=== PATIENT | female | born 1975 | race Caucasian/White ===

== ENCOUNTER 2024-01-04 03:43 | Emergency (ER) | payer OTHER, SELFPAY ==
--- NOTE | ~2024-01-04 | CT_ITS ---
CT scan of the Neck Technique: 2.5 mm axial scans were obtained through the neck after intravenous administration of 75 c c Omnipaque 350. Coronal and sagittal reconstructions of the neck were obtained. Dose reduction techn ique was used on this scan by utilizing automated exposure control and iterative reconstruction techn ique. The dose-length product (DLP) was 603.95 mGy-cm. Clinical History: Left ear infection extending to neck and jaw Findings: Suggestion of mild soft tissue thickening at the left external auditory canal with minimal infiltrati ve changes in the left prevascular region. There is shotty, minimally prominent left level 2 cervical lymph nodes. Parapharyngeal fat preserved bilaterally. Parapharyngeal spaces appear normal bilateral ly. The parotid and submandibular glands appear normal. The pharyngeal mucosal spaces appear normal. No soft tissue masses are seen in the neck. The thyroid gland appears normal. Images of the lung apices reveal no abnormalities. Impression: Possible left otitis externa. Correlate with physical exam. Shotty, presumably reactive minimally prominent level 2 cervical lymph nodes in the left side of the neck. Reviewed, dictated and finalized at [facility]. Impression: Possible left otitis externa. Correlate with physical exam. Shotty, presumably reactive minimally prominent level 2 cervical lymph nodes in the left side of the neck.
[2024-01-04 03:54] VITALS: BP 154/101; PULSE 90; RESP 14; TEMP 36.6; O2SAT 100
[2024-01-04 05:19] VITALS: BP 145/83; PULSE 93; RESP 13; O2SAT 93
[2024-01-04] MEDS: CIPROFLOXACIN 400 MG/D5W 200ML 200 ML 200 MG IVPB (05:21)
[2024-01-04] MEDS: ACETAMINOPHEN 500 MG TABLET 1000 MG PO (05:21)
[2024-01-04] MEDS: KETOROLAC 15 MG/ML VIAL (*BKC) IV PUSH (05:21)
[2024-01-04] MEDS: ONDANSETRON INJ 4 MG/2 ML VIAL IV PUSH (05:27)
--- NOTE | 2024-01-04 05:32 | ED.GENADULT ---
HPI - General Adult General Chief complaint: Ear Stated complaint: ear infection, headahce Time Seen by Provider: 01/04/24 04:04 History of Present Illness HPI narrative: This is a 48-year-old female presenting with ear pain. Starting earlier today she developed redness and swelling to the cartilage of her left ear. She had a cartilage earring she has since removed. She is now having pain extending to her face/neck and over her mastoid process. She has pain when opening her jaw. Patient feels warm but has not checked the temperature. She also has a headache and nausea. Related Data Allergies Allergy/AdvReac Type Severity Reaction Status Date / Time No Known Allergies Allergy Unverified 12/22/11 17:55 [facility] Social History Social History Smoking status: Never smoker Alcohol intake: current Exam Narrative: APPEARANCE: Patient is tearful and crying Head: Erythema of the left ear with sparing of the lobe. Tenderness to palpation over the mastoid. Pain on opening of the jaw. auditory canal and tympanic membrane within normal limits. EYES: EOMI, NOSE: Atraumatic NECK: Trachea midline RESPIRATORY: No increased rate of breathing CT PE CARDIOVASCULAR: RRR, ABDOMINAL: Non-distended MUSCULOSKELETAl: No obvious deformities NEURO: Alert. Moving 4/4 extremities SKIN:: Warm, dry. Normal color PSYCHIATRIC: Normal affect Course Vital Signs Vital signs: Vital Signs Temperature 97.8 F 01/04/24 03:54 Pulse Rate 90 01/04/24 03:54 Respiratory Rate 14 01/04/24 03:54 Blood Pressure 154/101 H 01/04/24 03:54 Pulse Oximetry 100 01/04/24 03:54 Oxygen Delivery Room Air 01/04/24 03:54 Temperature 97.8 F 01/04/24 03:54 Pulse Rate 93 01/04/24 05:19 Respiratory Rate 13 01/04/24 05:19 Blood Pressure 145/83 H 01/04/24 05:19 Pulse Oximetry 93 01/04/24 05:19 Oxygen Delivery Room Air 01/04/24 03:54 Medical Decision Making [facility] Narrative Medical decision making narrative: -Course: 48-year-old female presenting with infection to her left ear. Findings most consistent with perichondritis. No drainable bscess or fluctuance at this time. CT did not show any infectious changes extending into the face or neck. patient discharged on antibiotics with ENT follow-up. -DDX includes but is not limited to: Perichondritis, shingles of the ear, erysipelas -Independent interpretation of studies: labs reviewed within normal -Interventions: Cipro, Tylenol Toradol Zofran -Shared decision making / Disposition: discharge -RX Cipro Motrin Tylenol Vital Signs Vital Signs: Vital Signs Temperature 97.8 F 01/04/24 03:54 Pulse Rate 90 01/04/24 03:54 Respiratory Rate 14 01/04/24 03:54 Blood Pressure 154/101 H 01/04/24 03:54 Pulse Oximetry 100 01/04/24 03:54 Oxygen Delivery Room Air 01/04/24 03:54 Temperature 97.8 F 01/04/24 03:54 Pulse Rate 93 01/04/24 05:19 Respiratory Rate 13 01/04/24 05:19 Blood Pressure 145/83 H 01/04/24 05:19 Pulse Oximetry 93 01/04/24 05:19 Oxygen Delivery Room Air 01/04/24 03:54 Discharge Plan Discharge Clinical Impression: Perichondritis Patient Disposition: Home, Self-Care Condition: Stable Instructions: Antibiotic Form, Pierced Earlobe Infection (ED) Additional Instructions: Please take antibiotics as instructed. Use Motrin Tylenol for pain. Please follow-up with ENT in the next 2-3 days to ensure your wound is healing appropriately. Prescriptions: New ciprofloxacin HCl [Cipro] 250 mg tablet 750 mg PO Q12H 7 Days Qty: 42 0RF acetaminophen 500 mg tablet 1,000 mg PO TID PRN (Reason: mc) 7 Days Qty: 42 0RF ibuprofen 800 mg tablet 800 mg PO TID PRN (Reason: pain) 7 Days Qty: 21 0RF Follow-up/Referrals: Buddy Cole MD [Physician] - 3 Days (perichondritis ) Keegan Garcia MD [Primary Care Provider] -
[2024-01-04 05:38] LABS: Basophils Absolute Auto 0.1 K/mm3 (0.0-0.1); Basophils Percent Auto 0.7 % (0.2-1.2); Eosinophils Absolute Auto 0.2 K/mm3 (0-0.3); Hematocrit 39.9 % (37.0-47.0); Hemoglobin 12.9 g/dL (12.0-15.0); Immature Granulocyte Absolute 0.04 K/mm3 (0.00-0.031); Immature Granulocyte Percent A 0.4 % (0-0.5); Lymphocytes Absolute Auto 0.92 K/mm3 (0.9-3.2); Lymphocytes Percent Auto 9.3 % (18.3-44.2); Mean Corpuscular HGB Conc 32.3 g/dl (32-36); Mean Corpuscular Hemoglobin 30.1 pg (26-34); Mean Corpuscular Volume 93.2 fl (80-100); Mean Platelet Volume 10.1 fl (7.4-10.4); Monocytes Absolute Auto 0.5 K/mm3 (0.1-0.6); Monocytes Percent Auto 4.8 % (2.6-8.5); Neutrophils Absolute Auto 8.2 K/mm3 (1.3-6.7); Neutrophils Percent Auto 82.8 % (45.5-73.1); Platelet Count Result 302 k/mm3 (150-375); Red Blood Count 4.28 M/mm3 (4.2-5.4); Red Cell Distribution Width 13.9 % (11.5-14.5); White Blood Count 9.9 K/mm3 (4.5-10.0)
[2024-01-04 05:47] LABS: Alanine Aminotransferase 41 U/L (6-35); Albumin Level 4.3 g/dL (3.5-5.1); Alkaline Phosphatase 72 U/L (38-126); Anion Gap 9 mmol/L (4-12); Aspartate Amino Transferase 42 U/L (14-36); Bilirubin,Total 0.4 mg/dL (0.2-1.3); Blood Urea Nitrogen 16 mg/dL (7-17); Calcium 8.9 mg/dL (8.4-10.2); Carbon Dioxide 23 mmol/L (22-30); Chloride 103 mmol/L (98-107); Estimated CRCL calculation 91 ml/min; Estimated Glomerular Filt Rate > 60; Glucose 119 mg/dL (65-110); Potassium 3.9 mmol/L (3.4-5.0); Sodium 135 mmol/L (137-145)
[2024-01-04 06:21] VITALS: BP 121/68; PULSE 89; RESP 16; O2SAT 97
[2024-01-04 06:30] VITALS: PULSE 88; RESP 17; O2SAT 98
[2024-01-04 06:31] VITALS: BP 118/73; PULSE 89; RESP 16; O2SAT 97
--- NOTE | 2024-01-12 17:06 | PC.NURSE ---
LATE ENTRY: Cipro stopped at 0610.
== END 2024-01-04 06:41 | disposition home or self-care (01) ==
PROVIDERS: Emergency Provider Emergency Medicine; PCP Internal Medicine
DX: H61.002 Unspecified perichondritis of left external ear (principal)
CPT/HCPCS: 36415; 70491; 80053; 85025; 96365; 96375; 99284; A9270; J0744; J1885; J2405; Q9967